=== PATIENT | female | born 1945 | race Caucasian/White ===

== ENCOUNTER 2019-03-21 15:37 | Emergency (ER) | payer MEDICARE, OTHER, SELFPAY ==
[2019-03-21 15:38] VITALS: BP 161/83; PULSE 65; RESP 16; TEMP 36.6; O2SAT 99; BMI 24.0
--- NOTE | 2019-03-21 15:44 | EKG12_ITS ---
Test Reason : ALLERGIC REACTION Blood Pressure : / mmHG Vent. Rate : 063 BPM Atrial Rate : 063 BPM P-R Int : 180 ms QRS Dur : 086 ms QT Int : 432 ms P-R-T Axes : 042 -04 028 degrees QTc Int : 442 ms Normal sinus rhythm Minimal voltage criteria for LVH, may be normal variant Borderline ECG Confirmed by DANIELE GARBER, ANA LAURA ([id number]), news videotape editor KARLA DIANE ([id number]) on 03/24/2019 1:38:20 PM Referred By: YIN Confirmed By:ANA LAURA SANABRIA MD
--- NOTE | 2019-03-21 15:47 | ED.VISSUMM ---
- ER Visit Summary Date of Service: 03/21/19 Chief Complaint: Concern for allergic reaction History of Present Illness: The patient is a 73 F who presents for reaction to oral contrast. Patient had just drunk oral contrast for a CT scan, and immediately became cold and then began having tremors to the point she could not speak. Patient denies any lightheadedness, dizziness, headache, vision changes, chest pain, sensation of her throat or tongue swelling, pruritus or urticaria, shortness of breath, nausea or vomiting, or any other symptoms other than the difficulty controlling her muscles. She is now able to speak through chattering teeth. 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 Patient denies any changes in medications recently. Physical Examination: Vital signs: afebrile, hemodynamically stable, no hypoxia on room air General: well nourished, well developed, in no distress Skin: warm, dry, no rash, no pallor, no urticaria, no flushing HEENT: normocephalic and atraumatic; PERRL, EOMI, no nystagmus, moist mucous membranes, jaw is spasming and patient is speaking through chattering teeth Cardiovascular: regular rate and rhythm without murmurs, no peripheral edema, 2+ pulses all distal extremities Respiratory: No increased work of breathing, lungs are clear to auscultation bilaterally, no rales, rhonchi or wheezing Abdominal: Abdomen is soft, nontender with normoactive bowel sounds, no guarding or rebound, no masses MSK: Moves all extremities, tremulous in the left lower extremity, mild tremulousness in the bilateral upper extremities, diffuse weakness Neuro: Awake and alert, oriented ?4. No facial droop, sensation and motor function intact and symmetric Test Results: [ Abnormal Lab Results 03/21/19 03/21/19 03/21/19 16:00 16:00 16:00 WBC 4.3 L RBC 4.56 Hgb 11.4 L Hct 35.3 L MCV 77.4 L MCH 25.0 L MCHC 32.3 RDW 15.5 H RDW Differential 42.8 Plt Count 201 MPV 9.7 Immature Gran % (Auto) 0.200 Neut % (Auto) 61.1 Lymph % (Auto) 22.0 [place] % (Auto) 11.0 H Eos % (Auto) 5.2 H Baso % (Auto) 0.5 Absolute Neuts (auto) 2.6 Absolute Lymphs (auto) 0.94 Total Counted Not Reportable PT 13.3 INR 1.0 APTT 26.3 Sodium 125 L Potassium 3.6 Chloride 92 L Carbon Dioxide 24.0 Anion Gap 9 BUN 12 Creatinine 0.72 Estim Creat Clear Calc 37.24 Est GFR (MDRD) Af Amer 101 Est GFR (MDRD) Non-Af 84 BUN/Creatinine Ratio 16.6 Glucose 96 Calcium 8.9 Total Bilirubin 0.40 AST 19 ALT 20 Alkaline Phosphatase 112 Troponin I < 0.015 Total Protein 6.6 Albumin 3.7 Globulin 2.9 Albumin/Globulin Ratio 1.3 Clinical Impression(s) from Imaging Studies Abdomen/Pelvis CT 03/21/19 16:47 IMPRESSION: Postsurgical changes in the liver consistent with known neoplasm resection. For adequate assessment of residual disease, a multiphase hepatic protocol CT would be necessary. Mild perihepatic ascites. Mild left-sided hydronephrosis. Distended urinary bladder. No evidence of bowel obstruction. Electronically Signed: Peewee Malin, at 17:53 EDT Tel , Service support , Chest CT 03/21/19 16:47 IMPRESSION: Mild edema and bibasilar atelectasis. Trace right effusion. Right thyroid nodule millimeter nodule. Consider ultrasound follow-up. Reference CT abdomen and pelvis performed the same day for subdiaphragmatic findings. Electronically Signed: Peewee Malin, at 17:58 EDT Tel , Service support , Medications Given Discontinued Medications Diphenhydramine HCl (Benadryl) 12.5 mg IV X1 ONE Stop: 03/21/19 15:46 Last Admin: 03/21/19 16:01 Dose: 12.5 mg Documented by: GLORIA Sodium Chloride () 500 mls @ 1,000 mls/hr IV .Q30M MITCHELL Stop: 03/21/19 16:14 Last Admin: 03/21/19 16:01 Dose: 1,000 mls/hr Documented by: GLORIA Sodium Chloride () 500 mls @ 999 mls/hr IV .Q31M ONE Stop: 03/21/19 17:17 Last Admin: 03/21/19 17:44 Dose: 999 mls/hr Documented by: GLORIA Emergency Department Course and Treatment: Patient was given Benadryl for her tremulousness in case there was a component of a dystonic reaction. With time, patient's tremulousness resolved and she was able to speak normally. She had been getting the CT scan done as part of her work-up in preparation for chemotherapy. She was discussed with the nurse coordinator at her heme-onc doctor's office, Dr. White (RN Archana). I discussed the reaction to the oral contrast and offered to complete the CT scans with only IV contrast. Archana was able to tell me that a chest abdomen and pelvis had been ordered. While patient was being observed, these studies were completed. Patient was given a disc of the studies to take to her doctor. On final reevaluation she was completely back to baseline and had no tremulousness or difficulty speaking. Patient discharged home in improved condition. Treatment Plan: [] Disposition: [] Impression: Adverse reaction to oral contrast [] This note was generated with [employer] dictation software. It may contain incorrect words, spelling, and punctuation that were not noted in review of the chart prior to signing ED Disposition - Plan for ED Patient: Disposition: Home or Assisted Living Instructions: ALLERGIC REACTION, Drug Referrals: Betty Scott [Primary Care Provider] - As Needed Additional Instructions: You had a reaction to oral contrast today, which was gastrograffin. Please do not take this medication again. If you have any return of your symptoms or any worsening of your condition, call 911 or go immediately to the nearest emergency department. Keep your follow-up appointment with Dr. White as scheduled. Please take the CD of your scans today with you to this visit. If you have any worsening of your condition or any new concerning symptoms, please return immediately to the emergency department for another evaluation.
--- NOTE | 2019-03-21 15:48 | NURSING ---
NO OLD EKGS
[2019-03-21] MEDS: DiphenhydrAMINE 50 MG/ML Syringe 12.5 MG IV (16:01)
[2019-03-21 16:07] LABS: Absolute Lymphocyte Count 0.94 X10^3/ul (0.83-4.51); Absolute Neutrophil Count 2.6 X10^3/uL (2.0-7.7); Basophil# 0.02 X10^3/uL; Basophil% 0.5 % (0-1); Eosinophil# 0.22 X10^3/uL; Eosinophils% 5.2 % (0-5); Hematocrit 35.3 % (37-47); Hemoglobin 11.4 g/dl (12.0-15.0); Lymphocyte # 0.94 X10^3/ul (4.0); Mean Corp Hgb Conc 32.3 g/gl (32-36); Mean Corpuscular Volume 77.4 fL (81-99); Mean Platelet Vol. 9.7 fl (6.2-12.0); Monocyte# 0.47 X10^3/uL; Neutrophil # 2.61 X10^3/uL (2.7-7.7); Neutrophil % 61.1 % (47-70); Platelet Count 201 K/mm3 (150-450); RBC Distribution Width CV 15.5 % (11.6-14.6); RBC Distribution Width SD 42.8 fl (35.1-43.9); Red Blood Count 4.56 M/mm3 (4.2-5.4); White Blood Count 4.3 K/mm3 (4.4-11.0)
[2019-03-21 16:08] LABS: POSITIVE COUNT NO; POSITIVE DIFFERENTIAL NO; POSITIVE MORPHOLOGY NO
[2019-03-21 16:22] LABS: Partial Thromboplast Time 26.3 Seconds (24.1-36.2); Prothrombin Time (Protime)PT. 13.3 SECONDS (11.7-14.9)
[2019-03-21 16:26] LABS: ALB/GLOB Ratio 1.3 RATIO (0.9-2.4); AST(SGOT) 19 U/L (15-37); Alanine Aminotransfer ALT/SGPT 20 U/L (13-56); Albumin, Serum 3.7 g/dL (3.2-5.0); Alkaline Phosphatase 112 U/L (45-117); Anion Gap 9 (5-15); BUN 12 mg/dL (7-18); BUN/Creat Ratio 16.6 RATIO (10-20); Calcium,Total 8.9 mg/dL (8.5-10.1); Chloride 92 mmol/L (98-107); Creatinine, Serum 0.72 mg/dL (0.55-1.02); EST Glomerular Filtration Rate 84 mL/min (>60); Est Glom Filt Rate - Afr Amer 101 mL/min (>60); Estimated Creatinine Clearance 37.24 ml/min; Globulin 2.9 g/dL (2.2-4.2); Glucose 96 mg/dL (74-106); Potassium 3.6 mmol/L (3.5-5.1); Protein, Total 6.6 g/dL (6.4-8.2); Sodium Level 125 mmol/L (136-145)
[2019-03-21 16:37] VITALS: BP 174/73; PULSE 61; RESP 20; O2SAT 95
--- NOTE | 2019-03-21 16:41 | NURSING ---
KASEY CASAS [phone]
--- NOTE | 2019-03-21 16:47 | CT_ITS ---
STUDY: CT ABDOMEN AND PELVIS WITH CONTRAST REASON FOR EXAM: Female, 73 years old. Cancer RADIATION DOSAGE (If Supplied By Facility): TECHNIQUE: Transaxial images were obtained from the dome of the diaphragm to the symphysis pubis with oral contrast. 75ML ml of Isovue 370 contrast was administered. Sagittal and coronal images were reconstructed. Individualized dose optimization techniques were used for this CT. COMPARISON: None. FINDINGS: Bibasilar atelectasis is present. There is a trace right effusion. The visualized portions of the heart and pericardium are within normal limits. There are no calcified gallstones present. Partial right hepatic resection with numerous clips present with history of known hepatic neoplasm. There is limited assessment for masses with intravenous only phase provided. Postsurgical area is limited by artifact. Assessment for hepatic lesions limited and single venous phase. There is mild perihepatic ascites. The spleen is enlarged. The pancreas is within normal limits. The adrenal glands are within normal limits. There are no obstructing renal stones. Mild left-sided hydronephrosis is present. There are no focal renal lesions. The urinary bladder is distended. Normal visualized stomach. There is no bowel obstruction or inflammation. The aorta is normal in caliber. There is no abdominal or pelvic free air, free fluid, fluid collection or lymphadenopathy. There are no destructive osseous lesions. CT/Abdomen/Pelvis W IV Cont ONLY IMPRESSION: Postsurgical changes in the liver consistent with known neoplasm resection. For adequate assessment of residual disease, a multiphase hepatic protocol CT would be necessary. Mild perihepatic ascites. Mild left-sided hydronephrosis. Distended urinary bladder. No evidence of bowel obstruction. Electronically Signed: Peewee Malin, at 17:53 EDT Tel , Service support ,
--- NOTE | 2019-03-21 16:47 | CT_ITS ---
STUDY: CT CHEST WITH CONTRAST REASON FOR EXAM: Female, 73 years old. Neoplasm RADIATION DOSAGE (If Supplied By Facility): DLP = ( 1058.87 ) mGycm TECHNIQUE: Transaxial imaging was performed following intravenous administration of 75 ml of Isovue 370 contrast material. Coronal and sagittal reformatted images were created. Individualized dose optimization techniques were used for this CT. COMPARISON: None FINDINGS: Mild edema and bibasilar atelectasis is present. There is a trace right effusion. There are no pulmonary nodules or masses. There is no pneumothorax. A right thyroid 9 mm nodule is present. The heart and pericardium are within normal limits. There is no thoracic lymphadenopathy. There is no evidence of thoracic aortic aneurysm. Reference CT abdomen and pelvis performed the same day for subdiaphragmatic findings. There are no destructive osseous lesions. CT/Chest WITH Contrast IMPRESSION: Mild edema and bibasilar atelectasis. Trace right effusion. Right thyroid nodule millimeter nodule. Consider ultrasound follow-up. Reference CT abdomen and pelvis performed the same day for subdiaphragmatic findings. Electronically Signed: Peewee Malin, at 17:58 EDT Tel , Service support ,
[2019-03-21 17:49] VITALS: PULSE 65; RESP 19; O2SAT 96
[2019-03-21 19:12] VITALS: BP 154/78; PULSE 81; RESP 16; O2SAT 97
== END 2019-03-21 19:16 | disposition home or self-care (01) ==
PROVIDERS: Emergency Provider Emergency Medicine
DX: R53.1 Weakness (principal); T50.8X5A Adverse effect of diagnostic agents, initial encounter; Y92.238 Other place in hospital as the place of occurrence of the external cause; Z85.05 Personal history of malignant neoplasm of liver; E04.1 Nontoxic single thyroid nodule; J98.11 Atelectasis
CPT/HCPCS: 71260; 74177; 80053; 84484; 85025; 85610; 85730; 93005; 96361; 96374; 99285; J7030; J7040; Q9967